=== PATIENT | female | born 1965 | race Caucasian/White ===

== ENCOUNTER 2022-03-23 14:15 | Emergency (ER) | payer OTHER, SELFPAY ==
[2022-03-23 14:19] VITALS: BP 153/103; PULSE 118; RESP 16; TEMP 36.6; O2SAT 97
[2022-03-23 15:37] VITALS: RESP 16
--- NOTE | 2022-03-23 16:16 | ED.GENADULT ---
HPI - General Adult General Chief complaint: Dental/Oral Stated complaint: possible cuts in mouth Time Seen by Provider: 03/23/22 15:52 Source: patient Mode of arrival: ambulatory Limitations: no limitations History of Present Illness HPI narrative: Patient was eating pizza and suddenly started having bleeding from her tongue. Patient denies biting her tongue. Denied similar history. Review of Systems Review of Systems: All systems reviewed & are unremarkable except as noted in HPI and below Exam Narrative: General appearance: Well-developed, well-nourished Skin: Normal color Head: Normocephalic, nontraumatic Eyes: Clear conjunctiva ENT: Oropharynx normal, ears normal, nose normal, pulmonary exam showed thick layer of old blood at the center of the tongue, with a lump like lesion at the center of it, no active bleeding at this time Neck: Supple, nontender Chest and respiratory: Airway patent, no respiratory distress, no accessory muscle use Heart: Regular rate/rhythm Abdomen: Soft, nontender, no organomegaly, quiet bowel sounds Vascular: Normal peripheral pulses, normal capillary refill. Musculoskeletal: Normal range of motion, nontender back Neurologic: Alert and oriented ?3, GIS SCIENTIST is normal as tested, no gross motor deficit Course Vital Signs Vital signs: Vital Signs Temperature 36.6 C 03/23/22 14:19 Pulse Rate 118 H 03/23/22 14:19 Respiratory Rate 16 03/23/22 14:19 Blood Pressure 153/103 H 03/23/22 14:19 Pulse Oximetry 97 03/23/22 14:19 Temperature 36.6 C 03/23/22 14:19 Pulse Rate 118 H 03/23/22 14:19 Respiratory Rate 16 03/23/22 15:37 Blood Pressure 153/103 H 03/23/22 14:19 Pulse Oximetry 97 03/23/22 14:19 Oxygen Delivery Room Air 03/23/22 15:37 Medical Decision Making [facility] Narrative Medical decision making narrative: Physical examination showed possibly tumor at the center of the tongue. Patient declined blood work, CT scan of the of the neck and face to rule out the possibility of malignancy. She prefer to go to her family physician tomorrow because she lives at [place] and her main hospital is [facility]. Differential Diagnosis Differential Diagnosis: Foreign body laceration, tumor, Vital Signs Vital Signs: Vital Signs Temperature 36.6 C 03/23/22 14:19 Pulse Rate 118 H 03/23/22 14:19 Respiratory Rate 16 03/23/22 14:19 Blood Pressure 153/103 H 03/23/22 14:19 Pulse Oximetry 97 03/23/22 14:19 Temperature 36.6 C 03/23/22 14:19 Pulse Rate 118 H 03/23/22 14:19 Respiratory Rate 16 03/23/22 15:37 Blood Pressure 153/103 H 03/23/22 14:19 Pulse Oximetry 97 03/23/22 14:19 Oxygen Delivery Room Air 03/23/22 15:37 Critical Care Time Critical Care Time Critical Care Time: No Discharge Plan Discharge Clinical Impression: Hemorrhage of tongue Patient Disposition: Home, Self-Care Condition: Improved Instructions: Antibiotic Form, Hematoma (ED) Additional Instructions: Return if symptoms are worsening , call your family physician for appointment, take Tylenol as as needed for aches and pain, continue home medications. Physical examination today showed that you have a small nodule at the top/center of your tongue which could be tumor, hematoma, foreign body. Further evaluation is recommended through ENT. the pt was discharged to home.the pt,s condition upon discharge was fair,education was provided to the pt in reference to the final impression,discharge study results,treatment,prognosis and need for follow up . Follow-up/Referrals: Venkata Green MD [Physician] - 03/24/22 PHYSICIAN NOT ON STAFF,NONSTAFF [Primary Care Provider] -
--- NOTE | 2022-03-23 16:36 | PC.NURSE ---
Pt had small laceration/hematoma to tongue. bleeding controlled, tongue examined after being wiped with gauze and pt swished ice water for better assessment by erp. pt stating she is not in the mental state to accept testing today. pt educated by erp and resting comfortably at this time. no needs or other concerns at this time.
--- NOTE | 2022-03-23 16:39 | PC.NURSE ---
Addendum entered by Mary Kerr RN 03/23/22 16:40: pt refused to accept paper work in room, pt did not allow us to obtain a d/c vital set before leaving. Original Note: pt came to nurses station asking to leave, pt signed paper work, went over d/c and pt left with friend.
== END 2022-03-23 16:43 | disposition home or self-care (01) ==
PROVIDERS: Emergency Provider Emergency Medicine
DX: K14.8 Other diseases of tongue (principal)
CPT/HCPCS: 99281